=== PATIENT | female | born 1965 | race Caucasian/White ===

== ENCOUNTER → 2018-01-30 10:12 | Outpatient (CLI) | payer SELFPAY ==
--- NOTE | 2018-01-30 10:23 | MRI_ITS ---
STUDY: MR PELVIS WITH CONTRAST REASON FOR EXAM: Female, 52 years old. Bulge in the vagina noticed for 2 weeks. 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 7 ml of Gadavist contrast material was administered intravenously for the contrast portion of the examination. COMPARISON: None. FINDINGS: Bladder is mildly under distended however, within normal limits. Trace pelvic free fluid. Normal visualized small intestine. Normal visualized colon. Patient is status post hysterectomy. Posterior to the cervix, there is a T2 hyperintense and T1 mildly hyperintense cystic-like structure demonstrating no significant enhancement measuring 1.0 x 0.7 x 1.3 cm. This has well-defined smooth borders. Another subjacent cystic structure is also noted. There is no pelvic mass lesion or lymphadenopathy. Normal visualized pelvic arteries. Normal osseous structures. Normal abdominal wall. MRI/Pelvis W/WO Contrast IMPRESSION: Well-defined ovoid T2 hyperintense and T1 mildly hyperintense cystic formation in the region of the cervix, likely nabothian cyst. No evidence of enhancement. Unlikely to represent [place] gland cyst as it is not in the correct location. Remainder the exam is within normal limits. Subtle trace pelvic free fluid Electronically Signed: Gabriel Rey DO at 19:10 EDT Tel , Service support ,
== END ==
PROVIDERS: Family Provider Family Medicine; PCP Family Medicine; Visit Provider Obstetrics & Gynecology
DX: N36.1 Urethral diverticulum (principal)
CPT/HCPCS: 72197; A9585

== ENCOUNTER 2021-11-05 13:00 | Outpatient (CLI) | payer SELFPAY | END 2021-11-05 23:59 | disposition short-term general hospital (02) | PROVIDERS: PCP Family Medicine; Referring Provider Internal Medicine Pulmonary Disease; Visit Provider Internal Medicine Pulmonary Disease | DX: R19.7 Diarrhea, unspecified (principal) | CPT/HCPCS: 87493 ==